=== PATIENT | male | born 1965 | race Caucasian/White ===

== ENCOUNTER 2018-11-25 10:45 | Emergency (ER) | payer SELFPAY ==
[~2018-11-25] VITALS: Ht 170.2 cm; Wt 90.7 kg
--- OUTSIDE RECORDS SUMMARY | 2018-11-25 10:50 | XMS REPORT | Continuity of Care Document ---
Author Author [facility] Organization [facility] Address Unknown Phone Unavailable Allergies Active Description Code Type Severity Reaction Onset Reported/Identified Relationship to Patient Clinical Status Yes No Known Medication Allergies NKMA N/A N/A 10/20/2014 Medications There is no data. Problems Date Dx Coded Attending Type Code Diagnosis Diagnosed By 10/21/2014 Kwaku Garcia MD Final 305.1 TOBACCO USE DISORDER 10/21/2014 Kwaku Garcia MD Final 338.29 Other chronic pain 10/21/2014 Kwaku Garcia MD Reason 719.45 PAIN IN JOINT INVOLVING PELVIC REGION AND THIGH 10/21/2014 Kwaku Garcia MD Final 724.2 LUMBAGO Procedures There is no data. Results There is no data. Encounters ACCT No. Visit Date/Time Discharge Status Pt. Type Provider Facility Loc./Unit Complaint [id number] 10/20/2014 12:28:00 10/20/2014 14:19:00 DIS Emergency Kwaku Garcia MD [facility]
[2018-11-25] MEDS ORDERED: AMOX-358 PO (11:17)
--- NOTE | 2018-11-25 11:17 | ED EENT ---
History of Present Illness General Chief Complaint: Ear Problems Stated Complaint: EAR PAIN X4 DAYS Nursing Triage Note: AMB TO ED C/O R EAR PAIN FOR 4 DAYS Source: patient Exam Limitations: no limitations History of Present Illness Date Seen by Provider: Nov 25, 2018 Time Seen by Provider: 11:13 Initial Comments 53-year-old male who presents to the emergency room with complaints of right ear pain for the past 4 days. He reports that prior to this he did have an upper respiratory infection but reports that it settled in his right ear. He denies any draining. Reports using ibuprofen 200 mg for pain without relief. He sees Dr. Lan at the [facility] but did not want to make a sick visit because he would require a co-pay. Timing/Duration: other (4 days) Location: ear (R) Prearrival Treatment: over the counter meds Associated Symptoms: denies symptoms; No ear drainage, No fever Allergies and Home Medications Allergies Coded Allergies: No Known Drug Allergies (Unverified , 11/25/18) Home Medications Amoxicillin/Potassium Clav 1 Each Tablet, 1 EACH PO BID Prescribed by: BENNY DUEÑAS on 11/25/18 1117 Patient Home Medication List Home Medication List Reviewed: Yes Review of Systems Review of Systems Constitutional: no symptoms reported, see HPI Ears: See HPI, Pain (right ear pain) All Other Systems Reviewed Negative Unless Noted: Yes Past Spyoqjn-Zahpsm-Ipocbl Hx Past Med/Social Hx: Reviewed Nursing Past Med/Soc Hx Patient Social History Alcohol Use: Denies Use Recreational Drug Use: No Smoking Status: Current Everyday Smoker Recent Foreign Travel: No Contact w/Someone Who Travel: No Recent Infectious Disease Expo: No Past Medical History Surgeries: No Respiratory: No Cardiac: No Neurological: No Genitourinary: No Gastrointestinal: No Musculoskeletal: No Endocrine: No HEENT: No Cancer: No Psychosocial: No Family Medical History Reviewed Nursing Family Hx Physical Exam Vital Signs Vital Signs - First Documented 11/25/18 10:51 Temp 97.0 Pulse 96 Resp 18 B/P (MAP) 138/71 (93) Pulse Ox 96 O2 Delivery Room Air Height, Weight, BMI Height: 5'7.00" Weight: 200lbs. oz. 90.106181aa; BMI Method:Stated General Appearance: WD/WN, no apparent distress Eyes: bilateral eye normal inspection, bilateral eye PERRL, bilateral eye EOMI Ears: right ear tenderness, right ear TM red, right ear TM bulging; left ear auricle normal, left ear canal normal, left ear TM normal Nose: normal inspection Mouth/Throat: normal mouth inspection, pharynx normal Cardiovascular: normal peripheral pulses, regular rate, rhythm, no edema, no gallop, no JVD, no murmur Respiratory: chest non-tender, lungs clear, normal breath sounds, no respiratory distress, no accessory muscle use Neurologic/Psychiatric: alert, normal mood/affect, oriented x 3 Skin: normal color, warm/dry Progress/Results/Core Measures Results/Orders My Orders Orders - BENNY DUEÑAS Amoxicillin/Clavulanate Tablet (Augmenti (11/25/18 11:30) Vital Signs/I&O 11/25/18 10:51 Temp 97.0 Pulse 96 Resp 18 B/P (MAP) 138/71 (93) Pulse Ox 96 O2 Delivery Room Air Blood Pressure Mean: 93 Progress Progress Note : Time: 11:34 Progress Note I have seen and evaluated the patient. I've informed him of his exam findings that are consistent with otitis media of the right ear. I will be placing him on Augmentin 875 twice a day for 10 days. I've instructed close follow-up with Dr. Lan at [facility] and he agrees with plan of care. Departure Impression Primary Impression: Otitis media Disposition: 01 HOME, SELF-CARE Condition: Stable/Unchanged Departure-Patient Inst. Decision time for Depature: 11:15 Referrals: TETO RAMIREZ MD (PCP/Family) Primary Care Physician Patient Instructions: Ear Infections (Otitis Media) (DC) Add. Discharge Instructions: Take antibiotics as directed. Follow-up with your primary care provider within 1 week for recheck. Call first thing Tuesday morning for an appointment time. You may take ibuprofen and Tylenol as directed by the bottle to help with pain and fever. Return back to the emergency room for worsening symptoms or concerns as needed. All discharge instructions reviewed with patient and/or family. Voiced understanding. Scripts Amoxicillin/Potassium Clav (Augmentin 875-125 Tablet) 1 Each Tablet 1 EACH PO BID for 10 Days, #20 TAB Prov: BENNY DUEÑAS 11/25/18 BENNY DUEÑAS Nov 25, 2018 11:17
[2018-11-25] MEDS ORDERED: AUGMENTIN 875 MG TAB (AMOXICILLIN/CLAVULANATE) PO SCH (11:30)
[2018-11-25 11:37] VITALS: BP 138/71
== END 2018-11-25 11:36 | disposition home or self-care (01) ==
LOC: EDUNIT# 10:45 → ER 10:46
DX: H66.91 Otitis media, unspecified, right ear (principal); F17.200 Nicotine dependence, unspecified, uncomplicated
CPT/HCPCS: 99283